=== PATIENT | male | born 2000 | race African-American/Black ===

== ENCOUNTER 2022-02-23 22:23 | Emergency (ER) | payer OTHER ==
[~2022-02-23] VITALS: Ht 185.4 cm; Wt 86.4 kg
[2022-02-23 22:24] VITALS: BP 132/79
[2022-02-24] MEDS ORDERED: DERMABOND TOPICAL SKIN ADHESIVE TOP ONE (01:00)
== END 2022-02-24 01:40 | disposition home or self-care (01) ==
LOC: M ED 22:23
DX: S01.112A Laceration without foreign body of left eyelid and periocular area, initial encounter (principal); W22.8XXA Striking against or struck by other objects, initial encounter; Y92.133 Barracks on military base as the place of occurrence of the external cause; Y99.1 Military activity

== ENCOUNTER → 2022-10-25 | Outpatient (REF) | payer OTHER | LOC: M SFHCDERM 14:33 | PROVIDERS: ATTEND Nurse Practitioner Family | DX: L70.0 Acne vulgaris (principal); Z53.8 Procedure and treatment not carried out for other reasons ==

== ENCOUNTER 2023-06-05 15:20 | Emergency (ER) | payer OTHER ==
[~2023-06-05] VITALS: Ht 185.4 cm; Wt 87.4 kg
[2023-06-05] MEDS ORDERED: IBUP-1114 PO (15:36)
[2023-06-05] MEDS ORDERED: AMBI5TAB PO (15:36)
[2023-06-05] MEDS ORDERED: IBUP-1022 PO (15:36)
[2023-06-05] MEDS ORDERED: AMOX875T2 PO (17:54)
[2023-06-05] MEDS ORDERED: FLON1SPR NARES (17:54)
[2023-06-05 18:04] VITALS: BP 132/80; TEMP 97.9; O2SAT 100
== END 2023-06-05 18:06 | disposition home or self-care (01) ==
LOC: M ED 15:20
DX: J01.90 Acute sinusitis, unspecified (principal); J02.9 Acute pharyngitis, unspecified; F17.290 Nicotine dependence, other tobacco product, uncomplicated; Z79.899 Other long term (current) drug therapy; Z79.2 Long term (current) use of antibiotics; Z79.1 Long term (current) use of non-steroidal anti-inflammatories (NSAID)